=== PATIENT | female | born 1960 | race Caucasian/White ===

== ENCOUNTER → 2016-09-29 | Outpatient (CLI) | payer BC ==
[~2016-09-29] MED LIST: HYDR-1372 PO; IBUP200T51 PO; SALINE FLUSH 10ml SYRINGE ONE; SINCALIDE 5 MCG/VIAL IJ ONE; SODIUM CHLORIDE (Bacteriostatic) 30ml VIAL ONE
--- NOTE | 2016-09-29 11:58 | DI ---
Indication: ITS.REASON: R10.9 UNSPECIFIED ABD PAIN PROCEDURE: NM HEPATOBIL/EF: Encounter: Initial Comparison: None Technique: 6.4 mCi of Tc-99m mebrofenin was injected intravenously. At approximately 60 minutes following this administration, 2.2 mcg of Kinevac was administered intravenously. Anterior planar images were obtained and a time/activity curve was calculated. FINDINGS: Radiotracer uptake is seen homogenously within the liver. There is normal clearance of radiotracer from the blood pool. The common bile duct is visualized at approximately 14 minutes. The gallbladder is visualized by 15 minutes, and radiotracer is excreted into the small bowel. There is no evidence of radiotracer outside the biliary or gastrointestinal tract. The gallbladder ejection fraction is decreased at 14%. IMPRESSION: 1. Gallbladder visualization excluding acute cholecystitis. 2. Decreased gallbladder ejection fraction of 14%, consistent with biliary dyskinesia. .
== END ==
LOC: IMA 09:38
PROVIDERS: ATTEND Family Medicine
DX: R10.9 Unspecified abdominal pain (principal)
CPT/HCPCS: 78227; A9537; J2805